=== PATIENT | female | born 1995 | race Caucasian/White ===

== ENCOUNTER 2019-09-19 15:03 | Emergency (ER) | payer MEDICAID ==
[~2019-09-19] VITALS: Ht 154.9 cm; Wt 99.8 kg
[2019-09-19 15:20] VITALS: BP_SYST 120
--- NOTE | 2019-09-19 15:20 | NUR ---
Patient to ER bed 3 to gown for evaluation. Side rails up.
[2019-09-19] MEDS ORDERED: LIDOCAINE/EPI 1% 1:100000 20 ML VIAL INJ ONE ×2 (15:30→15:56)
--- NOTE | 2019-09-19 15:30 | NUR ---
Pt bib amubulance from home with laceration to the right knee. Reports falling off the bed approx an hour prior. V/S stable, pt is afebrile. Currently resting in bed, will continue to monitor.
--- NOTE | 2019-09-19 15:50 | NUR ---
ER Dr. Toribio at bedside examining patient.
[2019-09-19] MEDS ORDERED: BACITRACIN ZINC 15 GM TOPICAL OINTMENT TP ONE (16:00)
[2019-09-19] MEDS ORDERED: BACITRACIN TP ONE (16:00)
[2019-09-19] MEDS ORDERED: POLYMYXIN B TP ONE (16:00)
--- NOTE | 2019-09-19 16:00 | NUR ---
Wound irrigated with NS and left open for MD
--- NOTE | 2019-09-19 16:05 | NUR ---
Patient has a approx 7cm laceration to R knee. Dr. Toribio applied sutures using sterile technique. Edges well approximated. Site cleansed with NS and Betadine. Dressing of non-stick gauze and coban applied to site. No bleeding noted. Pt tolerated well.
--- NOTE | 2019-09-19 16:10 | NUR ---
Radiology at bedside for knee x-ray as per order.
[2019-09-19] MEDS ORDERED: BACITRACIN 1 GM OINT TP ONE (16:20)
--- NOTE | 2019-09-19 16:20 | NUR ---
Patient given written and verbal discharge instructions and verbalizes understanding. ER MD discussed with patient the results and treatment provided. Patient in stable condition. ID arm band removed. Rx of Naprosyn given. Patient educated on pain management and to follow up with PMD. Pain Scale 2. Opportunity for questions provided and answered. Medication side effect fact sheet provided. Discharged by Dr. Toribio
[2019-09-19 16:24] VITALS: BP_SYST 120
== END 2019-09-19 16:20 | disposition home or self-care (01) ==
LOC: SED 15:03
DX: S81.011A Laceration without foreign body, right knee, initial encounter (principal); W22.8XXA Striking against or struck by other objects, initial encounter; Y93.39 Activity, other involving climbing, rappelling and jumping off; Y92.89 Other specified places as the place of occurrence of the external cause; Y99.8 Other external cause status
CPT/HCPCS: 73564; 99283

== ENCOUNTER 2019-09-22 13:10 | Emergency (ER) | payer MEDICAID ==
[~2019-09-22] VITALS: Ht 154.9 cm; Wt 104.3 kg
[2019-09-22 14:45] VITALS: BP_SYST 146
--- NOTE | 2019-09-22 14:45 | NUR ---
Patient to ER triage to gown for evaluation. Assumed care.
--- NOTE | 2019-09-22 14:50 | NUR ---
Patient arrived for wound check. Patient had sutures placed 3 days ago here in the ED and was instructed to return for wound check. Patient has 13 sutures closing a laceration to right anterior knee. No signs of infection, reported fevers/chills. Patients wound is cleansed with normal saline and MD requested to see patient in triage.
--- NOTE | 2019-09-22 15:04 | NUR ---
ER in triage room examining patient.
[2019-09-22] MEDS ORDERED: BACITRACIN 1 GM OINT TP ONE (15:15)
[2019-09-22 15:19] VITALS: BP_SYST 146
--- NOTE | 2019-09-22 15:19 | NUR ---
Patient given written and verbal discharge instructions and verbalizes understanding. ER MD discussed with patient the results and treatment provided. Patient in stable condition. ID arm band removed. Rx not given. Patient educated on pain management and to follow up with PMD. Pain Scale 0/10. Opportunity for questions provided and answered. Medication side effect fact sheet provided.
== END 2019-09-22 15:19 | disposition home or self-care (01) ==
LOC: SED 13:10
DX: S81.011D Laceration without foreign body, right knee, subsequent encounter (principal); Z48.00 Encounter for change or removal of nonsurgical wound dressing; W45.8XXD Other foreign body or object entering through skin, subsequent encounter
CPT/HCPCS: 99281

== ENCOUNTER 2020-10-09 18:19 | Emergency (ER) | payer MEDICAID ==
[~2020-10-09] VITALS: Ht 152.4 cm; Wt 115.2 kg
[2020-10-09 18:37] VITALS: BP_SYST 148
--- NOTE | 2020-10-09 19:00 | NUR ---
DR. DURAN TO [facility] TO ASSESS PT.
--- NOTE | 2020-10-09 20:18 | NUR ---
PT TO BED 2 FOR EVALUATION.
--- NOTE | 2020-10-09 20:21 | NUR ---
Patient BIB by family from home. C/O abdominal pain x 3 weeks. Patient reported, had abdominal pain and distension on and off for 3 weeks, seen by PMD . Rx for constipation, pain not relief.
[2020-10-09 20:27] LABS: BILIRUBIN,URINE 1+ (NEGATIVE); BLOOD, URINE 2+ (NEGATIVE); COLOR,URINE YELLOW (YELLOW); GLUCOSE,URINE NEGATIVE (NEGATIVE); KETONES,URINE NEGATIVE (NEGATIVE); LEUKOCYTE ESTERASE ,URINE NEGATIVE (NEGATIVE); NITRITE, URINE NEGATIVE (NEGATIVE); PROTEIN URINE 3+ (NEGATIVE)
[2020-10-09 20:30] LABS: BASOPHILS % (AUTO) 0.6 % (0.0-2.0); EOSINOPHILS # (AUTO) 0.2 K/uL (0.0-0.4); HEMATOCRIT 39.4 % (36-48); HEMOGLOBIN 13.6 g/dL (12.0-16.0); LYMPHOCYTES # (AUTO) 2.7 K/uL (1.0-5.5); MEAN CORPUSCULAR HEMOGLOBIN 34 pg (27-31); MEAN CORPUSCULAR HGB CONC 34 % (32-36); MEAN CORPUSCULAR VOLUME 99 fL (79.0-98.0); MONOCYTES # (AUTO) 0.5 K/uL (0.0-1.0); MONOCYTES % (AUTO) 6.8 % (1.7-9.3); NEUTROPHILS # (AUTO) 3.4 K/uL (1.8-7.7); NEUTROPHILS % (AUTO) 50.6 % (40.0-70.0); RED BLOOD CELL COUNT(AUTO) 3.97 MIL/uL (4.2-6.2); RED CELL DISTRIBUTION WIDTH 14.3 % (9.0-15.0); WHITE BLOOD COUNT (AUTO) 6.8 K/uL (4.8-10.8)
[2020-10-09 20:50] LABS: PLATELET COUNT (AUTO) 68 K/uL (130-430)
[2020-10-09 20:51] LABS: INR 1.1 (0.8-1.2); PROTHROMBIN TIME 11.6 SECS (9.5-12.5)
[2020-10-09 20:56] LABS: ALBUMIN 1.7 g/dL (3.4-4.8); CALCIUM 7.8 mg/dL (8.4-11.0); CREATININE 0.69 mg/dL (0.55-1.30); POTASSIUM 3.8 mmol/L (3.5-5.1)
[2020-10-09 20:58] LABS: CLARITY/URINE HAZY (CLEAR)
[2020-10-09 21:00] LABS: BACTERIA,URINE FEW /HPF (None Seen); HYALINE CASTS, URINE 0-10 /LPF (None Seen); MUCUS,URINE None Seen /LPF (None Seen); RBC,URINE 0-3 /HPF (0-3); WBC,URINE 0-3 /HPF (0-3)
[2020-10-09 21:08] LABS: C-REACTIVE PROTEIN QUANT 2.3 mg/dL (0-0.5)
--- NOTE | 2020-10-09 21:42 | NUR ---
Patient given written and verbal discharge instructions and verbalizes understanding. DR. RENEE GRAHAM MD discussed with patient the results and treatment provided. Patient in stable condition. ID arm band removed. Patient educated on pain management and to follow up with PMD. Pain Scale 0/10. Opportunity for questions provided and answered.
[2020-10-09 21:44] VITALS: BP_SYST 148
[2020-10-09] MEDS ORDERED: IBUP-1971 PO (21:47)
[2020-10-09] MEDS ORDERED: ONDA-8 TL (21:47)
[2020-10-11 11:06] LABS: HEPATITIS A AB, IgM Negative (Negative); HEPATITIS B CORE AB, IgM Negative (Negative); HEPATITIS B SURFACE AG Negative (Negative)
== END 2020-10-09 21:44 | disposition home or self-care (01) ==
LOC: SED 18:19
DX: K74.60 Unspecified cirrhosis of liver (principal); E03.9 Hypothyroidism, unspecified
CPT/HCPCS: 36415; 76376; 80053; 81000; 81025; 82150; 83605; 83690; 84703; 85025; 85610-TC; 85730-TC; 86140; 86705; 86709; 87340; 99284

== ENCOUNTER 2020-10-19 18:11 | Emergency (ER) | payer MEDICAID ==
[~2020-10-19] VITALS: Ht 154.9 cm; Wt 111.1 kg
[~2020-10-19 18:11] MED LIST: IBUP-1971 PO; ONDA-8 TL
[2020-10-19 18:12] VITALS: BP_SYST 143
[2020-10-19 18:58] LABS: BASOPHILS % (AUTO) 0.6 % (0.0-2.0); EOSINOPHILS # (AUTO) 0.2 K/uL (0.0-0.4); EOSINOPHILS % (AUTO) 2.7 % (0.0-4.0); HEMATOCRIT 39.2 % (36-48); HEMOGLOBIN 13.3 g/dL (12.0-16.0); LYMPHOCYTES # (AUTO) 2.2 K/uL (1.0-5.5); LYMPHOCYTES % (AUTO) 39.7 % (20.5-51.5); MEAN CORPUSCULAR HEMOGLOBIN 34 pg (27-31); MEAN CORPUSCULAR HGB CONC 34 % (32-36); MEAN CORPUSCULAR VOLUME 100 fL (79.0-98.0); MONOCYTES # (AUTO) 0.4 K/uL (0.0-1.0); MONOCYTES % (AUTO) 6.5 % (1.7-9.3); NEUTROPHILS # (AUTO) 2.8 K/uL (1.8-7.7); NEUTROPHILS % (AUTO) 50.5 % (40.0-70.0); PLATELET COUNT (AUTO) 81 K/uL (130-430); RED BLOOD CELL COUNT(AUTO) 3.91 MIL/uL (4.2-6.2); RED CELL DISTRIBUTION WIDTH 13.9 % (9.0-15.0); WHITE BLOOD COUNT (AUTO) 5.6 K/uL (4.8-10.8)
[2020-10-19 19:26] LABS: POTASSIUM 3.6 mmol/L (3.5-5.1)
[2020-10-19 19:34] LABS: CALCIUM 7.9 mg/dL (8.4-11.0); CREATININE 0.59 mg/dL (0.55-1.30)
[2020-10-19 19:39] LABS: ALBUMIN 1.6 g/dL (3.4-4.8); TOTAL BILIRUBIN 1.2 mg/dL (0.0-1.0)
[2020-10-19] MEDS ORDERED: PRED20TA PO (20:23)
[2020-10-19] MEDS ORDERED: ACYC400T19 PO (20:23)
[2020-10-19 20:52] VITALS: BP_SYST 143
== END 2020-10-19 20:52 | disposition home or self-care (01) ==
LOC: SED 18:11
DX: G51.0 Bell's palsy (principal); E03.9 Hypothyroidism, unspecified; Z79.899 Other long term (current) drug therapy
CPT/HCPCS: 36415; 70450-TC; 76376; 80053; 81025; 84703; 85025; 93005; 99285